=== PATIENT | male | born 1995 | race Caucasian/White ===

== ENCOUNTER 2025-02-24 15:50 | Emergency (ER) | payer SELFPAY ==
[~2025-02-24] VITALS: Ht 172.7 cm; Wt 158.8 kg
[2025-02-24] MEDS ORDERED: AMOX-CLAV 875-1 EACH PO (16:23)
[2025-02-24] MEDS ORDERED: Amoxicillin/Clavulanate Pota 875 MG TAB PO ONE (16:25)
== END 2025-02-24 16:33 | disposition home or self-care (01) ==
LOC: ED 15:50
DX: H66.92 Otitis media, unspecified, left ear (principal); Z88.6 Allergy status to analgesic agent

== ENCOUNTER 2025-03-16 17:48 | Emergency (ER) | payer SELFPAY ==
[~2025-03-16] VITALS: Ht 170.1 cm; Wt 163.3 kg
[~2025-03-16 17:48] MED LIST: AMOX-CLAV 875-1 EACH PO
[2025-03-16] MEDS ORDERED: CLINDAMYCIN HC300 MG PO (19:08)
[2025-03-16] MEDS ORDERED: OFLOXACIN 10 ML10 M2 OT (19:08)
[2025-03-16] MEDS ORDERED: CLINDAMYCIN HCL 300 MG CAPSULE PO ONE (19:10)
[2025-03-16] MEDS ORDERED: OFLOXACIN 0.3% 5 ML BOTTLE OT ONE (19:10)
== END 2025-03-16 19:34 | disposition home or self-care (01) ==
LOC: ED 17:48
DX: H60.12 Cellulitis of left external ear (principal); H66.92 Otitis media, unspecified, left ear; Z88.6 Allergy status to analgesic agent